=== PATIENT | female | born 1975 | race Caucasian/White ===

== ENCOUNTER → 2023-11-11 10:17 | Outpatient (REF) | payer BC, SELFPAY | LOC: HWRAD 10:17 | PROVIDERS: ATTENDING PHYSICIAN Advanced Practice Midwife; FAMILY PHYSICIAN Family Medicine | DX: N93.9 Abnormal uterine and vaginal bleeding, unspecified (principal) | CPT/HCPCS: 76830; 76856 ==

== ENCOUNTER 2023-11-19 12:40 | Emergency (ER) | payer BC, SELFPAY ==
[2023-11-19 12:42] VITALS: BP 204/132
--- NOTE | 2023-11-19 13:27 | ED.GENMED ---
History of Present Illness
General
Chief Complaint: Vaginal Bleeding
Source: patient
Time Seen by Provider: 11/19/23 12:51
Travel History
Have you had any contact with someone who has COVID-19?: No
Do you have any symptoms of coronavirus? Fever > 100 degrees, chills, cough, shortness of breath, sore throat, loss of taste or smell, muscle aches, or headache?: No
History of Present Illness
History of Present Illness:
47-year-old female presenting the emergency department for evaluation of vaginal bleeding that is been off and on for about 3 months, back in October had been seen by her BRINELL TESTER who started the patient on norethindrone 5 mg tablets taking 3 tablets by
mouth daily until bleeding subsided and then was taking 2 mg tablets daily. Patient notes that symptoms seem to be improving but yesterday evening into today symptoms were started with worsening lower back pain/cramping and small vaginal bleeding
prompting her to come to the ER today. Patient had an ultrasound done about a week ago which showed endometrial hyperplasia. Patient has an appointment scheduled with her BRINELL TESTER this coming Tuesday to discuss treatment options/schedule a
endometrial biopsy. Patient denies any urinary symptoms, fevers or any other concerns. Did attempt some Motrin yesterday but has yet to take any medications today.
Past History
Past History
ED Past Medical History: Other (pre-eclampsia, kidney stones)
ED Past Surgical History: , Orthopedic and Tonsilectomy
Social History
Tobacco: Non-smoker
Alcohol: Occasional
Drug: None
Personal:
Living: with family
Employment: Employed
Family History
Family History: Other
Review of Systems
Review of Systems
All Other Systems: ROS reviewed and negative except as documented in HPI and ROS
Phy Exam
Physical Exam
Physical Exam:
GENERAL: Alert , appears slightly anxious as well as uncomfortable
EYE: clear conjunctiva b/l
HEAD: NCAT
ENT: o/p clr, mmm.
CARDIAC: Tachycardic rate and rhythm, no murmur
LUNGS: Clear breath sounds bilaterally, no acute respiratory distress, no wheezes/rales/rhonchi
ABDOMEN: Soft, mild suprapubic tenderness, no r/g, no cvat
NEUROLOGICAL: Alert and oriented
SKIN: Warm and dry, skin intact.
MUSCULOSKELETAL: well perfused.
PSYCH: Normal and appropriate interaction.
Scores
Heart Failure Risk
Heart Failure Risk Score: Not Applicable
Heart Score for Chest Pain Patients
STEMI patient?: Not applicable
Withdrawal Assessment of Alcohol
Withdrawal Assessment Completed?: Not applicable
Course
Orders/Labs/Results
Orders:
Orders
11/19/23 13:00
Ketorolac [Toradol] 30 mg IV NOW STA
11/19/23 13:40
Basic Metabolic Panel Urgent
Complete Blood Count/With Diff Urgent
Abnormal Lab Results
11/19/23
13:40
RBC 4.04 L 10^6/uL
(4.20-5.40)
MCH 31.7 H pg
(27.0-31.0)
Neutrophils % 77.1 H %
(42.2-75.2)
Lymphocytes % 17.5 L %
(20.5-51.1)
Carbon Dioxide 20 L mmol/L
(22-30)
11/19/23 13:40
11/19/23 13:40
Vital Signs
Initial and Last Documented VS:
Initial Vital Signs
Temp Pulse Resp BP Pulse Ox
99.2 F 119 20 204/132 100
11/19/23 12:42 11/19/23 12:42 11/19/23 12:42 11/19/23 12:42 11/19/23 12:42
Last Documented Vital Signs
Temp Pulse Resp BP Pulse Ox
99.2 F 119 20 204/132 100
11/19/23 12:42 11/19/23 12:42 11/19/23 12:42 11/19/23 12:42 11/19/23 12:42
MDM/Problems Addressed
Differential Diagnosis Includes:
Endometrial hyperplasia, endometrial carcinoma, endometrial polyp, perimenopausal state, anemia
MDM/Problems Addressed:
47-year-old female present emergency department for evaluation of dysfunctional uterine bleeding that has been ongoing for 3 months, initially had been managed with norethindrone, yesterday and today symptoms have worsened. She arrives to the
emergency department and found to be hypertensive and tachycardic. I do suspect there to be some degree of anxiety as opposed to an acute anemia. Patient does have an appointment scheduled for this coming Tuesday to go over management options
with the BRINELL TESTER. Will check labs here. Will discuss with BRINELL TESTER to discuss potential other treatment options
*Pulse Oximetry
Patient hypoxic: no
*Critical Care Note
Total Time (30-74mins, 75-104mins- exclusive of procedures): Not Applicable
Data Reviewed
Review of Other/Old Records Reveals: Radiology Studies (Thickened endometrium containing heterogeneous echogenicity in the uterine fundus which appears new from 12/17/2022. Diagnostic possibilities are (1) an endometrial polyp, (2) endometrial
carcinoma, or (3) endometrial hyperplasia.)
Source: patient
Patient Management
Discussion with other providers: Chemical Strength Tester
Escalation/DeEscalation of care consider admission/obs:
Patient's labs reassuring and pain is improved with Toradol. Blood pressure rechecked and improved to 153/100. Advised patient she should follow-up with primary care physician to have this rechecked in a few weeks. I discussed the case with
patient's BRINELL TESTER, Dr. Lynch, who is okay with me initiating the patient on the Lysteda. For pain advised patient continue NSAIDs as needed but will prescribe short-term course of Percocet to be used as needed. Aware of return precautions emergency
department but otherwise stable for discharge home.
ED Attending Note
-
Portions of this chart may have been created with voice recognition software.� Occasional wrong word or��sound alike� substitutions may have occurred due to the inherent limitations of voice recognition software.
Discharge Plan
Departure
Patient Disposition: Home (Routine Discharge)
Date of Disposition: 11/19/23
Time of Disposition: 14:15
Patient with high blood pressure during this ER visit?: Yes
Discharge Problem:
Dysfunctional uterine bleeding
Instructions: Endometrial Biopsy
Prescriptions:
New
tranexamic acid 650 mg tablet
650 mg PO BID 5 Days Qty: 10 0RF
oxycodone-acetaminophen [Percocet] 5-325 mg tablet
1 tab PO Q6HPRN PRN (Reason: pain) Qty: 8 0RF
No Action
prenat.vits,adelina,hde-jnrc-mofik [ Vitamin] 1 TAB tablet
1 tab PO Daily
folic acid 1 MG tablet
1 mg PO Daily
ibuprofen 600 MG tablet
600 mg PO Q4HPRN PRN (Reason: moderate pain/cramps) Qty: 30 0RF
ondansetron [Zofran ODT] 8 MG tablet,disintegrating
8 mg PO TIDPRN PRN (Reason: vomiting) Qty: 15 0RF
oxycodone 5 MG tablet
5 mg PO Q6H PRN (Reason: pain) Qty: 15 0RF
oxycodone-acetaminophen 5 MG/325 MG tablet
1 - 2 tab PO Q4HPRN PRN (Reason: pain) Qty: 30 0RF
ondansetron HCl 4 MG tablet
4 mg PO Q8HPRN PRN (Reason: nausea) Qty: 30 0RF
sulfamethoxazole-trimethoprim 1 TABLET tablet
1 tab PO BID Qty: 14 0RF
Referrals:
Blanca Lynch MD [Active] -
Pedro Martin MD [Family Provider] -
Interventions
Interventions:
*General Assessment Last Done: 11/19/23 13:57
*Neglect/Abuse Screening Last Done: 11/19/23 13:57
ED- Fall Risk Assessment Last Done: 11/19/23 13:57
ED-Female Genitourinary Assessment Last Done: 11/19/23 13:57
[2023-11-19] MEDS: TORADOL 30 MG IV (13:40)
[2023-11-19 13:51] LABS: % Basophils 0.4 % (0-2); % Eosinophils 0.3 % (0-6); % Immature Granulocytes 0.1 % (0-0.5); % Lymphocytes 17.5 % (20.5-51.1); % Monocytes 4.6 % (1.7-9.3); % Neutrophils 77.1 % (42.2-75.2); Absolute Lymphocytes 1.3 10^3/uL (1.2-3.4); Absolute Monocytes 0.4 10^3/uL (0.1-0.6); Absolute Neutrophils 5.9 10^3/uL (1.4-6.5); Hematocrit 37.4 % (37.0-47.0); Hemoglobin 12.8 g/dL (12.0-16.0); Mean Corp Hgb Conc. 34.2 g/dL (33.0-37.0); Mean Corpuscular Hgb 31.7 pg (27.0-31.0); Mean Corpuscular Volume 92.6 fL (81.0-99.0); Nucleated Red Blood Cells % 0 %; Platelet Count 292 10^3/uL (130-400); Red Blood Cell Count 4.04 10^6/uL (4.20-5.40); Red Cell Dist. Width 12.6 % (11.5-14.5); White Blood Cell Count 7.6 10^3/uL (4.8-10.8)
[2023-11-19 14:01] VITALS: BP 153/101
[2023-11-19 14:06] LABS: Blood Urea Nitrogen 13 mg/dl (7-17); Calcium 9.4 mg/dl (8.4-10.2); Carbon Dioxide 20 mmol/L (22-30); Chloride 106 mmol/L (98-107); Glucose 86 mg/dl (70-99); Potassium 4.3 mmol/L (3.5-5.1); Sodium 138 mmol/L (135-145); eGFR > 60.00
[2023-11-19 15:00] VITALS: BP 155/98
== END 2023-11-19 15:07 | disposition home or self-care (01) ==
LOC: EMR 12:40
PROVIDERS: Physician Assistant Medical; EMERGENCY PHYSICIAN Emergency Medicine; FAMILY PHYSICIAN Family Medicine
DX: N93.8 Other specified abnormal uterine and vaginal bleeding (principal); I10 Essential (primary) hypertension
CPT/HCPCS: 99284; 96374; 80048; 85025

== ENCOUNTER 2023-12-21 14:19 | Emergency (ER) | payer BC, SELFPAY ==
[2023-12-21 14:22] VITALS: BP 200/110
[2023-12-21 14:41] LABS: % Basophils 0.4 % (0-2); % Eosinophils 1.4 % (0-6); % Immature Granulocytes 0.2 % (0-0.5); % Lymphocytes 36.7 % (20.5-51.1); % Monocytes 9.4 % (1.7-9.3); % Neutrophils 51.9 % (42.2-75.2); Absolute Eosinophils 0.1 10^3/uL (0-0.7); Absolute Lymphocytes 1.8 10^3/uL (1.2-3.4); Absolute Monocytes 0.5 10^3/uL (0.1-0.6); Absolute Neutrophils 2.6 10^3/uL (1.4-6.5); Hematocrit 38.5 % (37.0-47.0); Hemoglobin 12.4 g/dL (12.0-16.0); Mean Corp Hgb Conc. 32.2 g/dL (33.0-37.0); Mean Corpuscular Hgb 30.3 pg (27.0-31.0); Mean Corpuscular Volume 94.1 fL (81.0-99.0); Mean Platelet Volume 9.5 fL (7.4-10.4); Nucleated Red Blood Cells % 0 %; Platelet Count 326 10^3/uL (130-400); Red Blood Cell Count 4.09 10^6/uL (4.20-5.40); Red Cell Dist. Width 13.8 % (11.5-14.5)
[2023-12-21 14:52] LABS: HCG, Serum Qualitative Screen Negative
[2023-12-21 14:58] LABS: ALT (SGPT) 47 U/L (0-35); AST (SGOT) 45 U/L (14-36); Albumin 4.5 g/dl (3.5-5.0); Alkaline Phosphatase 37 U/L (38-126); Blood Urea Nitrogen 10 mg/dl (7-17); Calcium 9.4 mg/dl (8.4-10.2); Carbon Dioxide 23 mmol/L (22-30); Chloride 106 mmol/L (98-107); Glucose 110 mg/dl (70-99); Lipase 96 U/L (23-300); Potassium 4.2 mmol/L (3.5-5.1); Sodium 136 mmol/L (135-145); Total Bilirubin 0.4 mg/dl (0.2-1.3); Total Protein 7.6 g/dl (6.3-8.2); eGFR > 60.00
[2023-12-21 15:16] VITALS: BMI 29.1
--- NOTE | 2023-12-21 15:31 | ED.GENMED ---
History of Present Illness
<Emili Vanegas PA-C - Last Filed: 12/21/23 18:26>
General
Chief Complaint: Back Pain
Source: patient
Exam Limitations: none
Time Seen by Provider: 12/21/23 14:46
Nursing documentation reviewed up to this point in time: agreed with
Travel History
Have you had any contact with someone who has COVID-19?: No
Do you have any symptoms of coronavirus? Fever > 100 degrees, chills, cough, shortness of breath, sore throat, loss of taste or smell, muscle aches, or headache?: No
History of Present Illness
History of Present Illness:
48-year-old female with past medical history of hypertension, abnormal uterine bleeding presenting emergency department today with concerns of pelvic pain and lower back pain for the past 2 months. Patient has had associated heavy vaginal bleeding
with this. She is known to Dr. Lynch with [facility]. Patient ultrasound showed endometrial hyperplasia, patient had a biopsy done which was negative for any malignancy. Patient had a D&C and hysteroscopy 7 days ago with Jerman Schmitz
because she cannot get in soon enough with her own OB. Patient states that her pain has been persistent since then, despite decrease of oxycodone and ibuprofen, and she is currently taking norethidrone to help control her bleeding. She thought that
her pelvic pain and her low back pain was result of the bleeding, or rather the medication used to treat her bleeding. Patient states that it is constant however, at night, sometimes it will become very severe and feel like labor pains. Patient
states that her pain is not severely worsened, however she called her OBs office who advised her to come emergency department considering she is having these pains and suggested a possible CT scan. Patient states that her bleeding has since
lightened up significantly, and now she has had some mild bleeding, she denies any vaginal pain, dysuria, dizziness, lightheadedness, upper back pain
Past History
<Emili Vanegas PA-C - Last Filed: 12/21/23 18:26>
Past History
ED Past Medical History: Other (pre-eclampsia, kidney stones)
ED Past Surgical History: , Orthopedic and Tonsilectomy
Social History
Tobacco: Non-smoker
Alcohol: Occasional
Drug: None
Personal:
Living: with family
Employment: Employed
Family History
Family History: Other
Review of Systems
<Emili Vanegas PA-C - Last Filed: 12/21/23 18:26>
Review of Systems
All Other Systems: ROS reviewed and negative except as documented in HPI and ROS
Phy Exam
<SUSIE Reynolds Last Filed: 12/21/23 18:26>
Physical Exam
Physical Exam:
Vitals: Patient is tachycardic and HTN
General: Patient well-appearing in no acute distress
Skin: Warm and dry, no rashes or lesions
Head: Normocephalic, atraumatic
Cardiac: Regular rate and rhythm, no murmurs
Pulm: Normal respiratory effort, no wheezes, rales, rhonchi
Abdomen: Some tenderness palpation in the adnexal regions bilaterally. No lower abdominal tenderness, no upper abdominal tenderness. No palpable masses. No guarding, no rebound tenderness.
Neuro: CN II-XII intact, AAOx3.
Course
<Emili Vanegas PA-C - Last Filed: 12/21/23 18:26>
Orders/Labs/Results
Orders:
Orders
12/21/23 14:26
Test Result ONCE
12/21/23 14:31
Complete Blood Count/With Diff Urgent
Comprehensive Metabolic Panel Urgent
HCG, Serum Qualitative Screen Urgent
Lipase Urgent
12/21/23 15:23
Urinalysis Reflex To Culture Urgent
Date Specimen was Collected: 12/21/23
Time Specimen was Collected: 14:26
Urine Microscopic Reflex Cult Urgent
12/21/23 15:27
CT Abd/pelvis W Iv Cont Urgent
Comment:
Reason For Exam: severe pelvic pain
Ketorolac [Toradol] 15 mg IV NOW STA
Abnormal Lab Results
12/21/23 12/21/23
14:31 15:23
RBC 4.09 L 10^6/uL
(4.20-5.40)
MCHC 32.2 L g/dL
(33.0-37.0)
Monocytes % 9.4 H %
(1.7-9.3)
Glucose 110 H mg/dl
(70-99)
AST 45 H U/L
(14-36)
ALT 47 H U/L
(0-35)
Alkaline Phosphatase 37 L U/L
(38-126)
Ur Occult Blood Reflex 2+ A
(Negative)
Urine RBC 11-15 A /HPF
(0-2)
Urine Bacteria (Reflex) Few A
(Negative)
12/21/23 14:31
12/21/23 14:31
Vital Signs
Initial and Last Documented VS:
Initial Vital Signs
Temp Pulse Resp BP Pulse Ox
98.0 F 118 16 200/110 98
12/21/23 14:22 12/21/23 14:22 12/21/23 14:22 12/21/23 14:22 12/21/23 14:22
Last Documented Vital Signs
Temp Pulse Resp BP Pulse Ox
98.1 F 102 16 162/112 100
12/21/23 15:35 12/21/23 15:35 12/21/23 15:35 12/21/23 17:28 12/21/23 15:35
<Khoa Cook DO - Last Filed: 12/21/23 15:37>
Orders/Labs/Results
Orders:
Orders
12/21/23 14:26
Test Result ONCE
12/21/23 14:31
Complete Blood Count/With Diff Urgent
Comprehensive Metabolic Panel Urgent
HCG, Serum Qualitative Screen Urgent
Lipase Urgent
12/21/23 15:23
Urinalysis Reflex To Culture Urgent
Date Specimen was Collected: 12/21/23
Time Specimen was Collected: 14:26
Urine Microscopic Reflex Cult Urgent
12/21/23 15:27
CT Abd/pelvis W Iv Cont Urgent
Comment:
Reason For Exam: severe pelvic pain
Ketorolac [Toradol] 15 mg IV NOW STA
Abnormal Lab Results
12/21/23 12/21/23
14:31 15:23
RBC 4.09 L 10^6/uL
(4.20-5.40)
MCHC 32.2 L g/dL
(33.0-37.0)
Monocytes % 9.4 H %
(1.7-9.3)
Glucose 110 H mg/dl
(70-99)
AST 45 H U/L
(14-36)
ALT 47 H U/L
(0-35)
Alkaline Phosphatase 37 L U/L
(38-126)
Ur Occult Blood Reflex 2+ A
(Negative)
Urine RBC 11-15 A /HPF
(0-2)
Urine Bacteria (Reflex) Few A
(Negative)
12/21/23 14:31
12/21/23 14:31
Vital Signs
Initial and Last Documented VS:
Initial Vital Signs
Temp Pulse Resp BP Pulse Ox
98.0 F 118 16 200/110 98
12/21/23 14:22 12/21/23 14:22 12/21/23 14:22 12/21/23 14:22 12/21/23 14:22
Last Documented Vital Signs
Temp Pulse Resp BP Pulse Ox
98.1 F 102 16 162/112 100
12/21/23 15:35 12/21/23 15:35 12/21/23 15:35 12/21/23 17:28 12/21/23 15:35
<Emili Vanegas PA-C - Last Filed: 12/21/23 18:26>
MDM/Problems Addressed
Differential Diagnosis Includes:
Differentials include endometriosis, adenomyosis, leiomyoma, endometriosis, nephrolithiasis, intra-abdominal abscess, endometritis, ovarian cancer
MDM/Problems Addressed:
Pelvic pain
Low back pain
Chronic conditions affecting care: HTN
Acute Exacerbation and/or Progression of Chronic Illness:
Patient hypertensive to 200/110 upon arrival. Patient states that she is having issues with her blood pressure the past few months, before her surgery, she was placed on amlodipine. She currently takes this daily. She is unsure of the dosing.
Other than her chronic pain patient has no headache, no chest pain, no other symptoms at this time, will hold off on acute treatment for now.
Acute Exacerbation and/or Progression of Chronic Illness: HTN
<Emili Vanegas PA-C - Last Filed: 12/21/23 18:26>
*Critical Care Note
Total Time (30-74mins, 75-104mins- exclusive of procedures): Not Applicable
<Emili Vanegas PA-C - Last Filed: 12/21/23 18:26>
Patient Management
Escalation/DeEscalation of care consider admission/obs:
48-year-old female with past medical history of hypertension, abnormal uterine bleeding presenting emergency department today with concerns of pelvic pain and lower back pain for the past 2 months. Patient has had associated heavy vaginal bleeding
with this. She is known to Dr. Lynch with [facility]. Patient had a D&C last week as well as a hysteroscopy. Patient has not scheduled follow-up appointment January 02 to go over these results. Here in emergency department CBC and CMP
are unremarkable. Her CT scan demonstrates mildly enlarged globular uterus suspicious for uterine adenomyosis, as well as multiple large left renal cyst. Considering these findings of new left renal cyst, we will have patient follow-up with
urology. I provided her with referral.
Patient is also had issues with her blood pressure the past few months. Today patient is hypertensive. Patient follows with her primary, currently on amlodipine. No indication for acute lowering at this time. Patient aware of this issue and will
follow-up
ED Attending Note
<Emili Vanegas PA-C - Last Filed: 12/21/23 18:26>
-
Portions of this chart may have been created with voice recognition software.� Occasional wrong word or��sound alike� substitutions may have occurred due to the inherent limitations of voice recognition software.
<Khoa Cook DO - Last Filed: 12/21/23 15:37>
ED Attending Note
Patient seen and examined by attending physician: Yes
I performed the substantive portion of visit, reviewed & personally made and approve the management plan that is documented in note by myself or WINDY.: Yes
I performed a history and physical exam of patient and discussed management with resident, I reviewed resident's note and agree with documented findings and plan of care.: Yes
ED Attending Note:
I evaluated the patient at bedside. The patient is had months worth of abdominal pain but has been worsening. She had a D&C at [place] (known to [facility] however could not get an appointment as quickly as she did at [place]). She
is concerned of ongoing abdominal pain which is diffuse but more so on the lower abdomen. The vaginal bleeding has lessened but persisted. She has noted to be hypertensive currently on amlodipine�she is unsure of the dose. Her hemoglobin is
normal, renal function is normal, hCG negative, will obtain CT imaging for further evaluation. Blood pressure is noted to be markedly elevated�she has been told in the past that she has had several readings that were very high when she checks it at
home much improved. She has no significant symptoms concerning for high blood pressure.
Discharge Plan
Departure
Patient Disposition: Home (Routine Discharge)
Date of Disposition: 12/21/23
Time of Disposition: 17:14
Patient with high blood pressure during this ER visit?: Yes
Condition: Good
Discharge Problem:
Pelvic pain, Low back pain
Instructions: Low Back Pain (DC), Pelvic Pain (DC), BLOOD PRESSURE
Prescriptions:
No Action
oxycodone-acetaminophen 5 MG/325 MG tablet
1 - 2 tab PO Q4HPRN PRN (Reason: pain) Qty: 30 0RF
norethindrone acetate 5 mg Tablet
5 mg PO DAILY
Referrals:
Sammie Quinteros PA-C [Family Provider] -
Jayme Hood MD [Active] - Call in 1-3 days for appt
Activity Restrictions/Additional Instructions:
As discussed, please follow-up with your OB as scheduled in January.
We have given you referral for urologist. Please call tomorrow for an appointment to address the left renal cyst.
Please return to emergency department should you experience increasing bleeding, dizziness, lightheadedness, syncopal episodes, chest pain, shortness of breath, or other concerning signs or symptoms.
Interventions
Interventions:
*Risk Screen - Suicide Last Done: 12/21/23 15:16
*General Assessment Last Done: 12/21/23 15:16
*Neglect/Abuse Screening Last Done: 12/21/23 15:16
ED- Fall Risk Assessment Last Done: 12/21/23 15:16
*ED COVID-19 Vaccine History Last Done: 12/21/23 14:22
*Nursing Disposition Last Done: 12/21/23 17:29
ED-Musculoskeletal Assessment Last Done: 12/21/23 15:16
Discharge Date and Time
Discharge Date/Time: 12/21/23 17:30
[2023-12-21 15:33] LABS: Urine Albumin Negative (Neg - Trace); Urine Bilirubin Negative (Negative); Urine Character Clear (Clear); Urine Color Straw; Urine Glucose Negative (Negative); Urine Ketone Negative (Negative); Urine Leukocyte Negative (Negative); Urine Nitrite Negative (Negative); Urine Occult Blood 2+ (Negative); Urine Specific Gravity 1.005 (<1.030); Urine Urobilinogen Negative (Neg - 1+)
[2023-12-21 15:35] VITALS: BP 193/120
[2023-12-21] MEDS: TORADOL 15 MG IV (15:38)
[2023-12-21 15:45] LABS: Urine Bacteria Few (Negative); Urine White Cell 0-2 /HPF (0-5)
--- NOTE | 2023-12-21 16:45 | EDRN ---
the pt is resting in stretcher in the lowest position, side rails up x1, HOB elevated, no s/s of distress, the pt states that she is comfortable and denies needing anything at this time, awaiting for provider to come to the pts bedside to reassess
the pt, will continue to monitor the pt closely
[2023-12-21 17:28] VITALS: BP 162/112
--- NOTE | 2023-12-21 17:29 | EDRN ---
blood pressure rechecked and still elevated at 162/112, this RN notified providers Emili DURAN and Dr. Cook who want the pt to follow up with primary care provider
== END 2023-12-21 17:30 | disposition home or self-care (01) ==
LOC: EMR 14:19
PROVIDERS: Emergency Medicine; EMERGENCY PHYSICIAN Emergency Medicine; FAMILY PHYSICIAN Physician Assistant Medical
DX: R10.2 Pelvic and perineal pain (principal); M54.50 Low back pain, unspecified; I10 Essential (primary) hypertension; N93.9 Abnormal uterine and vaginal bleeding, unspecified; G89.29 Other chronic pain; N85.00 Endometrial hyperplasia, unspecified; Z87.59 Personal history of other complications of pregnancy, childbirth and the puerperium
CPT/HCPCS: 99284; 74177; 80053; 81003; 81015; 83690; 84703; 85025; Q9967

== ENCOUNTER 2024-04-15 06:53 | Emergency (ER) | payer BC, SELFPAY ==
[2024-04-15 06:57] VITALS: BP 146/109
--- NOTE | 2024-04-15 08:03 | ED.GENMED ---
Addendum entered and electronically signed by Kay Patterson PA-C 04/17/24 07:07:
e coli prelim urine, received rocephina nd is on keflex
await sensitivies
Original Note:
History of Present Illness
General
Chief Complaint: Urinary Symptoms
Source: patient
Exam Limitations: none
Time Seen by Provider: 04/15/24 07:45
Nursing documentation reviewed up to this point in time: agreed with
History of Present Illness
History of Present Illness:
Patient is a 48-year-old female with history of hysterectomy 10 weeks ago presents today for evaluation. Patient reports on Tuesday, 6 days ago she had burning with urination and urgency that has since resolved but yesterday developed left flank
pain and fevers. In addition she also developed sore throat cough yesterday. She is unsure if this is COVID and or acute infection. She does have a history of kidney stones in the past. She does not feel that this pain is as severe as her prior
kidney stone. Her last kidney stone was 10 years ago. She is drinking fluids. She has not taken Motrin or Tylenol today.
Past History
Past History
ED Past Medical History: Other (pre-eclampsia, kidney stones)
ED Past Surgical History: , Orthopedic and Tonsilectomy
Social History
Tobacco: Non-smoker
Alcohol: Occasional
Drug: None
Personal:
Living: with family
Employment: Employed
Family History
Family History: Other
Review of Systems
Review of Systems
Allergies reviewed?: Yes
All Other Systems: ROS reviewed and negative except as documented in HPI and ROS
Constitutional: Reports fever and chills
EENT: Reports no symptoms
Respiratory: Reports no symptoms
Cardiac: Reports no symptoms
ABD/GI: Reports no symptoms; Denies abdominal pain, nausea or vomiting
: Reports flank pain and urgency (had frequency /urgency 6 d ago resolved but now w/ left flank pain )
Musculoskeletal: Reports back pain (left flank pain )
Skin: Reports no symptoms
Neurological: Reports no symptoms
Psychiatric: Reports no symptoms
Phy Exam
General Physical Exam
General Presentation: well appearing
General age: appears stated age
General Skin: warm and dry
General Habitus: normal
General Mental: alert
General Hydration: appears well hydrated
Neurological Exam
Neurological Exam: alert and oriented x3
Musculoskeletal Exam
Musculoskeletal Exam: full ROM
Skin Exam
Skin Exam: normal color and warm/dry
Psychiatric Exam
Psychiatric Exam: normal mood/affect
Course
Orders/Labs/Results
Orders:
Orders
04/15/24 08:03
0.9% Sodium Chloride 1000 ml [Nss] 1,000 ml IV BOLUS
Ketorolac [Toradol] 15 mg IV NOW STA
04/15/24 08:04
CT Abd/pel Without Iv Or Oral Urgent
Comment:
Reason For Exam: left flank pain
04/15/24 08:34
CMP [Comprehensive Metabolic Panel] Urgent
COVID-19 Antigen Urgent
Source: Nasal Swab
Complete Blood Count/With Diff Urgent
Urinalysis Reflex To Culture Urgent
Date Specimen was Collected: 04/15/24
Time Specimen was Collected: 06:59
Urine Microscopic Reflex Cult Urgent
Urine Culture Urgent
ROBERTO Source: U
Specimen Description:
Date Specimen was Collected: 04/15/24
Time Specimen was Collected: 06:59
04/15/24 10:41
CefTRIAXone [Rocephin] 1,000 mg IV NOW STA
04/15/24 12:04
Vital Signs- Treatment ONCE
Frequency: Once
04/15/24 12:05
Acetaminophen [Tylenol] 650 mg PO NOW STA
Abnormal Lab Results
04/15/24
08:34
MCH 31.6 H pg
(27.0-31.0)
Absolute Monos (auto) 0.8 H 10^3/uL
(0.1-0.6)
Lymphocytes % 20.2 L %
(20.5-51.1)
Monocytes % 11.7 H %
(1.7-9.3)
Urine Ketones 1+ A
(Negative)
Ur Occult Blood Reflex 3+ A
(Negative)
Leukocyte Esterase Rfl 1+ A
(Negative)
Urine RBC 3-6 A /HPF
(0-2)
Urine WBC (Reflex) >100 A /HPF
(0-5)
Urine Bacteria (Reflex) Many A
(Negative)
Urine Albumin (Reflex) 2+ A
(Neg - Trace)
SARS-CoV-2 Antigen Positive A
(Negative)
04/15/24 08:34
04/15/24 08:34
Vital Signs
Initial and Last Documented VS:
Initial Vital Signs
Temp Pulse Resp BP Pulse Ox
100.2 F 79 17 146/109 99
04/15/24 06:57 04/15/24 06:57 04/15/24 06:57 04/15/24 06:57 04/15/24 06:57
Last Documented Vital Signs
Temp Pulse Resp BP Pulse Ox
100.2 F 113 18 125/101 97
04/15/24 06:57 04/15/24 08:20 04/15/24 08:20 04/15/24 08:20 04/15/24 08:20
MDM/Problems Addressed
Differential Diagnosis Includes:
Not limited to viral syndrome, COVID, UTI pyelonephritis renal stone
MDM/Problems Addressed:
Patient is a 48-year-old female who presented to the ER for evaluation. As documented patient started with burning with urination and urgency several days ago that resolved but now has left flank pain and fever chills in addition she has had sore
throat and cough. Patient was incidentally found to be COVID-positive here in the ER. She presents awake alert nontoxic with a low-grade temp of 100.2. Her white count is normal at 6.6 stable hemoglobin 15.0 urine though significant squamous
cells also with significant white blood cells and with symptoms concerning for UTI/pyelonephritis. Patient does have a history of kidney stone and that she did not feel that this is similar however with UTI symptoms CAT was done and does show mild
left periureteral edema but no renal or ureteral calculi. There is incidental renal cyst. From a COVID perspective patient well-appearing will DC with supportive care regarding urinalysis we will treat for pyelonephritis will give 1 dose of
Rocephin here and discharged on Keflex for 500 mg twice daily for 10 days
*Critical Care Note
Total Time (30-74mins, 75-104mins- exclusive of procedures): Not Applicable
ED Attending Note
-
Portions of this chart may have been created with voice recognition software.� Occasional wrong word or��sound alike� substitutions may have occurred due to the inherent limitations of voice recognition software.
Discharge Plan
Departure
Patient Disposition: Home (Routine Discharge)
Date of Disposition: 04/15/24
Time of Disposition: 12:04
Patient with high blood pressure during this ER visit?: Yes
Condition: Fair
Covid-19: Not Applicable
Discharge Problem:
COVID-19, Pyelonephritis
Instructions: COVID-19 ED, Urinary Tract Infection, Adult ED, BLOOD PRESSURE
Prescriptions:
New
cephalexin 500 mg capsule
500 mg PO BID Qty: 20 0RF
No Action
oxycodone-acetaminophen 5 MG/325 MG tablet
1 - 2 tab PO Q4HPRN PRN (Reason: pain) Qty: 30 0RF
norethindrone acetate 5 mg Tablet
5 mg PO DAILY
Referrals:
Sammie Quinteros PA-C [Family Provider] -
Activity Restrictions/Additional Instructions:
As discussed you were found to be COVID-positive. For covid, get as much rest as you can and you may take Tylenol Motrin and stay well-hydrated. Additionally you also have a kidney infection. You were given 1 dose of IV antibiotics here in the
ER and a prescription for antibiotic to take twice a day for the next 10 days. Stay well-hydrated. Follow-up with your family doctor in the next of days for reevaluation of your symptoms. Return here if any worsening of symptoms including
worsening fever chills back pain nausea vomiting. Please have your blood pressure rechecked as it was elevated here in the ER.
Interventions
Interventions:
*Risk Screen - Suicide Last Done: 04/15/24 06:58
*General Assessment Last Done: 04/15/24 06:58
*Neglect/Abuse Screening Last Done: 04/15/24 06:58
ED- Fall Risk Assessment Last Done: 04/15/24 08:07
*ED COVID-19 Vaccine History Last Done: 04/15/24 06:58
ED-Female Genitourinary Assessment Last Done: 04/15/24 08:07
Discharge Date and Time
Print Language: LITHUANIAN
[2024-04-15 08:07] VITALS: BMI 28.5
[2024-04-15 08:20] VITALS: BP 125/101
[2024-04-15] MEDS: NSS 1000 IV (08:25)
[2024-04-15] MEDS: TORADOL 15 MG IV (08:25)
[2024-04-15 08:49] LABS: % Basophils 0.3 % (0-2); % Eosinophils 0.6 % (0-6); % Immature Granulocytes 0.3 % (0-0.5); % Lymphocytes 20.2 % (20.5-51.1); % Monocytes 11.7 % (1.7-9.3); % Neutrophils 66.9 % (42.2-75.2); Absolute Lymphocytes 1.3 10^3/uL (1.2-3.4); Absolute Monocytes 0.8 10^3/uL (0.1-0.6); Absolute Neutrophils 4.4 10^3/uL (1.4-6.5); Mean Corp Hgb Conc. 35.7 g/dL (33.0-37.0); Mean Corpuscular Hgb 31.6 pg (27.0-31.0); Mean Corpuscular Volume 88.4 fL (81.0-99.0); Mean Platelet Volume 9.2 fL (7.4-10.4); Nucleated Red Blood Cells % 0 %; Platelet Count 240 10^3/uL (130-400); Red Blood Cell Count 4.75 10^6/uL (4.20-5.40); Red Cell Dist. Width 13.6 % (11.5-14.5); White Blood Cell Count 6.6 10^3/uL (4.8-10.8)
[2024-04-15 08:56] LABS: Urine Albumin 2+ (Neg - Trace); Urine Bilirubin Negative (Negative); Urine Character Very Cloudy (Clear); Urine Color Yellow; Urine Glucose Negative (Negative); Urine Ketone 1+ (Negative); Urine Leukocyte 1+ (Negative); Urine Nitrite Negative (Negative); Urine Occult Blood 3+ (Negative); Urine Urobilinogen Negative (Neg - 1+)
[2024-04-15 09:01] LABS: ALT (SGPT) 20 U/L (0-35); AST (SGOT) 28 U/L (14-36); Albumin 4.7 g/dl (3.5-5.0); Alkaline Phosphatase 91 U/L (38-126); Blood Urea Nitrogen 9 mg/dl (7-17); Calcium 9.9 mg/dl (8.4-10.2); Carbon Dioxide 24 mmol/L (22-30); Chloride 101 mmol/L (98-107); Estimated Creatinine Clearance 90 ml/min; Glucose 94 mg/dl (70-99); Potassium 4.6 mmol/L (3.5-5.1); Sodium 136 mmol/L (135-145); Total Bilirubin 0.5 mg/dl (0.2-1.3); Total Protein 7.6 g/dl (6.3-8.2); eGFR > 60.00
[2024-04-15 09:13] LABS: COVID-19 Antigen Positive (Negative)
[2024-04-15 09:18] LABS: Urine Mucus Few; Urine Squamous Cell >30 /LPF (Few)
[2024-04-15 09:21] LABS: Urine Bacteria Many (Negative); Urine White Cell >100 /HPF (0-5)
[2024-04-15] MEDS: ROCEPHIN 1000 MG IV (11:24)
[2024-04-15 11:30] VITALS: BP 142/102
[2024-04-15] MEDS: TYLENOL 650 MG PO (12:09)
[2024-04-15 12:15] VITALS: BP 146/102
[2024-04-15 13:03] LABS: Urine Albumin 2+ (Neg - Trace); Urine Bilirubin 1+ (Negative); Urine Character Clear (Clear); Urine Color Yellow; Urine Glucose Negative (Negative); Urine Ketone 2+ (Negative); Urine Leukocyte Trace (Negative); Urine Nitrite Positive (Negative); Urine Occult Blood 2+ (Negative); Urine Urobilinogen Negative (Neg - 1+)
[2024-04-15 13:39] LABS: Urine Mucus Many
[2024-04-15 13:40] LABS: Urine Bacteria Many (Negative); Urine Squamous Cell 0-2 /LPF (Few); Urine White Cell 21-25 /HPF (0-5)
== END 2024-04-15 12:48 | disposition home or self-care (01) ==
LOC: EMR 06:53
PROVIDERS: Emergency Medicine; Nurse Practitioner; EMERGENCY PHYSICIAN Emergency Medicine; FAMILY PHYSICIAN Physician Assistant Medical
DX: U07.1 COVID-19 (principal); N10 Acute pyelonephritis; Z11.52 Encounter for screening for COVID-19; R03.0 Elevated blood-pressure reading, without diagnosis of hypertension; N28.1 Cyst of kidney, acquired; Z90.710 Acquired absence of both cervix and uterus; Z87.442 Personal history of urinary calculi
CPT/HCPCS: 99284; 96374; 96375; 96361; 74176; 80053; 81003; 81015; 85025; 87077; 87086; 87186; 87811

== ENCOUNTER → 2024-08-16 18:12 | Outpatient (REF) | payer BC, SELFPAY | LOC: WDC 18:12 | PROVIDERS: ATTENDING PHYSICIAN Student in an Organized Health Care Education/Training Program; FAMILY PHYSICIAN Physician Assistant Medical | DX: Z12.31 Encounter for screening mammogram for malignant neoplasm of breast (principal) | CPT/HCPCS: 77063; 77067 ==

== ENCOUNTER → 2024-11-15 09:38 | Outpatient (REF) | payer BC, SELFPAY | LOC: WDC 09:38 | PROVIDERS: ATTENDING PHYSICIAN Student in an Organized Health Care Education/Training Program; FAMILY PHYSICIAN Physician Assistant Medical | DX: R92.2 Inconclusive mammogram (principal); Z80.3 Family history of malignant neoplasm of breast | CPT/HCPCS: 76641 ==

== ENCOUNTER → 2025-03-05 08:29 | Outpatient (REF) | payer BC, SELFPAY ==
[2025-03-05 09:07] LABS: % Basophils 0.5 % (0-2); % Eosinophils 1.6 % (0-6); % Immature Granulocytes 0.2 % (0-0.5); % Lymphocytes 37.1 % (20.5-51.1); % Monocytes 7.7 % (1.7-9.3); % Neutrophils 52.9 % (42.2-75.2); Absolute Eosinophils 0.1 10^3/uL (0-0.7); Absolute Lymphocytes 1.6 10^3/uL (1.2-3.4); Absolute Monocytes 0.3 10^3/uL (0.1-0.6); Absolute Neutrophils 2.3 10^3/uL (1.4-6.5); Hemoglobin 14.5 g/dL (12.0-16.0); Mean Corp Hgb Conc. 34.5 g/dL (33.0-37.0); Mean Corpuscular Hgb 35.1 pg (27.0-31.0); Mean Corpuscular Volume 101.7 fL (81.0-99.0); Mean Platelet Volume 9.7 fL (7.4-10.4); Nucleated Red Blood Cells % 0 %; Platelet Count 215 10^3/uL (130-400); Red Blood Cell Count 4.13 10^6/uL (4.20-5.40); Red Cell Dist. Width 11.9 % (11.5-14.5); White Blood Cell Count 4.3 10^3/uL (4.8-10.8)
[2025-03-05 10:51] LABS: Blood Urea Nitrogen 13 mg/dl (7-17); Calcium 9.5 mg/dl (8.4-10.2); Carbon Dioxide 23 mmol/L (22-30); Chloride 107 mmol/L (98-107); Glucose 110 mg/dl (70-99); Potassium 4.2 mmol/L (3.5-5.1); Sodium 139 mmol/L (135-145); eGFR > 60.00
== END ==
LOC: RCS 08:29
PROVIDERS: ATTENDING PHYSICIAN Student in an Organized Health Care Education/Training Program; FAMILY PHYSICIAN Physician Assistant Medical
DX: Z01.818 Encounter for other preprocedural examination (principal)
CPT/HCPCS: 36415; 80048; 85025; 93005

== ENCOUNTER → 2025-08-19 09:25 | Outpatient (REF) | payer BC, SELFPAY | LOC: WDC 09:25 | PROVIDERS: ATTENDING PHYSICIAN Advanced Practice Midwife; FAMILY PHYSICIAN Physician Assistant Medical | DX: N64.52 Nipple discharge (principal) | CPT/HCPCS: 76642; 77062; 77066 ==